=== PATIENT | female | born 1980 | race Caucasian/White ===

== ENCOUNTER 2018-12-15 14:13 | Outpatient (CLI) | payer MEDICAID ==
[2018-12-15 18:54] LABS: BASOPHILS % (AUTO) 0.5 %; EOSINOPHILS # (AUTO) 0.1 10^3/uL (0.0-0.7); EOSINOPHILS % (AUTO) 1.5 %; HGB - HEMOGLOBIN 11.5 g/dL (12.0-16.0); LYMPHOCYTES # (AUTO) 2.2 10^3/uL (1.5-3.5); LYMPHOCYTES % (AUTO) 28.6 %; MEAN CORPUSCULAR HEMOGLOBIN 28.3 pg (27.0-31.0); MEAN CORPUSCULAR HGB CONC 32.7 g/dL (32.0-36.0); MEAN CORPUSCULAR VOLUME 86.8 fL (81.0-99.0); MEAN PLATELET VOLUME 8.1 fL (7.9-10.8); MONOCYTES # (AUTO) 0.4 10^3/uL (0.0-1.0); MONOCYTES % (AUTO) 5.4 %; NEUTROPHILS # (AUTO) 4.9 10^3/uL (1.5-6.6); PLT - PLATELET COUNT 353 10^3/uL (130-450); RED BLOOD COUNT 4.05 10^6/uL (4.20-5.40); RED CELL DISTRIBUTION WIDTH 14.9 % (12.0-15.0); WHITE BLOOD COUNT 7.7 x10^3/uL (4.8-10.8)
[2018-12-15 19:10] LABS: CALCIUM 9.1 mg/dL (8.5-10.3); CREATININE 0.6 mg/dL (0.4-1.0)
[2018-12-15 19:33] LABS: THYROID STIMULATING HORMONE 1.46 uIU/mL (0.34-5.60)
== END 2018-12-15 14:14 | disposition home or self-care (01) ==
LOC: LAB.WCP 14:13
PROVIDERS: ATTEND Physician Assistant Medical
DX: F41.9 Anxiety disorder, unspecified (principal)
CPT/HCPCS: 36415; 80048; 82306; 82607; 84443; 85025

== ENCOUNTER 2019-03-14 16:58 | Emergency (ER) | payer MEDICAID ==
--- NOTE | 2019-03-14 17:19 | ED Physician Documentation ---
PD HPI NVD - Stated complaint Stated Complaint: DIARRHEA - Chief complaint Chief Complaint: Abd Pain - History obtained from History obtained from: Patient - History of Present Illness Timing - onset: Other (She has had 4 days of diarrhea and cramps with slight nausea but no vomiting. No fevers. She traveled to the [place] recently but has been back for about 2 weeks before symptoms developed. She denies recent antibiotic use or camping.) Review of Systems Constitutional: denies: Fever, Chills Cardiac: denies: Chest pain / pressure, Palpitations Respiratory: denies: Dyspnea, Cough PD PAST MEDICAL HISTORY - Present Medications Home Medications: Ambulatory Orders Medication Instructions Recorded Confirmed RX: Dicyclomine [Bentyl] 20 mg PO QID PRN #15 capsule 03/14/19 Stool Sample 1 unit TD ONCE #1 03/14/19 - Allergies Allergies/Adverse Reactions: Allergies Allergy/AdvReac Type Severity Reaction Status Date / Time Penicillins Allergy Intermediate Hives Verified 03/14/19 17:08 fruit Allergy Intermediate Rash Uncoded 03/14/19 17:08 - Social History Smoking Status: Never smoker PD ED PE NORMAL - Vitals Vital signs reviewed: Yes - General General: Alert and oriented X 3, No acute distress - Cardiac Cardiac: RRR, No murmur - Respiratory Respiratory: No respiratory distress, Clear bilaterally - Abdomen Abdomen: Soft, Non tender - Back Back: No CVA TTP, No spinal TTP - Extremities Extremities: No edema, No calf tenderness / cord - Neuro Neuro: Alert and oriented X 3, Normal speech Results - Vitals Vitals: Vital Signs - 24 hr 03/14/19 03/14/19 17:05 18:34 Temperature 36.7 C Heart Rate 65 70 Respiratory 16 14 Rate Blood Pressure 89/66 L 94/56 L O2 Saturation 100 100 Oxygen O2 Source Room air PD MEDICAL DECISION MAKING - ED course ED course: 38-year-old woman with 4 days of diarrhea and nausea and cramps. She is a benign examination. She was unable to provide a stool sample while in the department and went home with collection materials and an outpatient requisition. Departure - Departure Disposition: 01 Home, Self Care Clinical Impression: Diarrhea Condition: Good Record reviewed to determine appropriate education?: Yes Instructions: ED Gastroenteritis Report Pend Prescriptions: RX: Dicyclomine [Bentyl] 20 mg PO QID PRN #15 capsule PRN Reason: Abdominal Pain Stool Sample 1 unit TD ONCE #1 Comments: We will call if a specific treatable pathogen is isolated from your diarrhea sample. Return if worse. Drink plenty of fluids. Follow-up with your doctor in 3 days if not better. Discharge Date/Time: 03/14/19 18:37
[2019-03-14] MEDS ORDERED: DICYCLOMINE 10 MG CAPSULE PO STA (18:25)
[2019-03-14 18:37] VITALS: BP 94/56
== END 2019-03-14 18:37 | disposition home or self-care (01) ==
LOC: ED 16:58
DX: R19.7 Diarrhea, unspecified (principal)
CPT/HCPCS: 99283; A9270; 87015; 87272; 87329; 87798

== ENCOUNTER 2019-03-16 08:00 | Outpatient (CLI) | payer MEDICAID | END 2019-03-16 23:59 | disposition home or self-care (01) | LOC: LAB.R 08:00 | PROVIDERS: ATTEND Emergency Medicine | DX: R19.7 Diarrhea, unspecified (principal) | CPT/HCPCS: 81599; 87045; 87046; 87329; 87493; 87798 ==

== ENCOUNTER 2022-01-12 09:28 | Outpatient (CLI) | payer MEDICAID ==
[2022-01-12 12:34] LABS: BASOPHILS # (AUTO) 0.1 10^3/uL (0.0-0.1); BASOPHILS % (AUTO) 0.8 %; EOSINOPHILS # (AUTO) 0.4 10^3/uL (0.0-0.7); EOSINOPHILS % (AUTO) 4.4 %; HCT - HEMATOCRIT 38.4 % (37.0-47.0); HGB - HEMOGLOBIN 12.8 g/dL (12.0-16.0); LYMPHOCYTES # (AUTO) 2.2 10^3/uL (1.5-3.5); LYMPHOCYTES % (AUTO) 26.3 %; MEAN CORPUSCULAR HEMOGLOBIN 29.2 pg (27.0-31.0); MEAN CORPUSCULAR HGB CONC 33.3 g/dL (32.0-36.0); MEAN CORPUSCULAR VOLUME 87.7 fL (81.0-99.0); MONOCYTES # (AUTO) 0.5 10^3/uL (0.0-1.0); MONOCYTES % (AUTO) 6.5 %; NEUTROPHILS # (AUTO) 5.1 10^3/uL (1.5-6.6); NEUTROPHILS % (AUTO) 61.6 %; PLT - PLATELET COUNT 363 10^3/uL (130-450); RED BLOOD COUNT 4.38 10^6/uL (4.20-5.40); RED CELL DISTRIBUTION WIDTH 13.7 % (12.0-15.0); WHITE BLOOD COUNT 8.3 x10^3/uL (4.8-10.8)
[2022-01-12 15:49] LABS: RHEUMATOID FACTOR NEGATIVE (Negative)
[2022-01-14 09:47] LABS: ANA SCREEN NEGATIVE (NEGATIVE)
== END 2022-01-12 09:29 | disposition home or self-care (01) ==
LOC: LAB.N 09:28
PROVIDERS: ATTEND Physician Assistant Medical
DX: R20.2 Paresthesia of skin (principal)
CPT/HCPCS: 36415; 85025; 85651; 86038; 86140; 86225; 86430

== ENCOUNTER 2022-02-02 08:50 | Outpatient (CLI) | payer MEDICAID ==
--- NOTE | 2022-02-02 11:48 | MRI Report ---
PROCEDURE: Cervical Spine W/O INDICATIONS: PARAESTHESIA TECHNIQUE: Noncontrast sagittal T1 spin echo and T2 fast spin echo, sagittal STIR, foraminal oblique sagittal T2 fast spin echo, and axial gradient echo or T2 fast spin echo through the cervical spine. COMPARISON: None. FINDINGS: Image quality: Excellent. Alignment and Curvature: There is normal bony alignment. Bone Marrow: Marrow demonstrates normal overall signal. Spinal Cord: Visualized spinal cord has normal size and signal. No cerebellar tonsillar herniation. Paraspinous Soft Tissues: No paravertebral masses. Prevertebral soft tissues are normal in thicknes s. C2-C3: Normal in appearance. C3-C4: Slight loss of disc signal. Mild, diffuse disc bulge. Small right central disc protrusion. M ild narrowing of the central canal. No neuroforaminal narrowing. No neural compression. C4-C5: Normal in appearance. C5-C6: Normal in appearance. C6-C7: Slight loss of disc signal. Mild, diffuse disc bulge. Small central disc protrusion. Mild ryan rowing of the central canal. No neural foraminal narrowing. No neural compression. C7-T1: Normal in appearance. IMPRESSION: 1. Mild C3-C4 and C6-7 C7 degenerative disc disease. 2. Mild C3-C4 and C6-C7 central canal narrowing. 3. No neural foraminal narrowing. 4. No neural compression. Reviewed by: Leny Bolton MD, PhD on 02/02/2022 11:47 AM PDT Approved by: Leny Bolton MD, PhD on 02/02/2022 11:47 AM PDT Station ID: [id number]
== END 2022-02-02 08:51 | disposition home or self-care (01) ==
LOC: DI 08:50
PROVIDERS: ATTEND Physician Assistant Medical
DX: M50.31 Other cervical disc degeneration, high cervical region (principal); M48.02 Spinal stenosis, cervical region; M50.21 Other cervical disc displacement, high cervical region